=== PATIENT | female | born 1960 | race Caucasian/White ===

== ENCOUNTER → 2017-01-21 | Outpatient (CLI) | payer OTHER ==
[~2017-01-21] MED LIST: GADOBUTROL 10 ML VIAL IVP ONE
== END ==
LOC: FIMAGING 13:05
PROVIDERS: ATTEND Psychiatry & Neurology Neurology
DX: G35 Multiple sclerosis (principal)
CPT/HCPCS: A9585

== ENCOUNTER → 2018-03-03 | Outpatient (CLI) | payer OTHER ==
[~2018-03-03] MED LIST changes: -GADOBUTROL 10 ML VIAL IVP ONE; +IOPAMIDOL (ISOVUE-300) 100 ML BTL ONE
== END ==
LOC: CIMAGING 11:51
PROVIDERS: ATTEND Physician Assistant
DX: K55.1 Chronic vascular disorders of intestine (principal); Z90.49 Acquired absence of other specified parts of digestive tract
CPT/HCPCS: 74177-PO; Q9967

== ENCOUNTER → 2018-03-27 | Day surgery (SDC) | payer OTHER ==
[~2018-03-27] MED LIST changes: +ALTEPLASE 2 MG VIAL IVP PRN; +CLOPIDOGREL BISULFATE 75 MG TAB PO ONE; +FLUMAZENIL 0.5 MG/5 ML MDV IVP PRN; +GLUCAGON HCL 1 MG VIAL IVP PRN; +HEPARIN 10,000 UNIT/10 ML MDV (1,000 UNIT/ML) IVP PRN; +HEPARIN 10,000 UNIT/10 ML MDV (1,000 UNIT/ML) ONE; +MEPERIDINE 25 MG/ML SYR IVP PRN; +MIDAZOLAM 2 MG/2 ML VIAL IVP PRN; +NALOXONE HCL 0.4 MG/ML INJ IVP PRN; +NS 1,000 ML IV SCH; +ONDANSETRON 4 MG/2 ML VIAL IVP PRN; +OXYCODONE/APAP 5/325 TAB PO PRN; +PROTAMINE SULFATE 50 MG/5 ML VIAL IVP PRN; +fentaNYL 100 MCG/2 ML INJ IVP PRN
--- NOTE | 2018-03-27 08:31 | PDGENHP ---
History and Physical - Chief Complaint Ischemic Colitis - History of Present Illness 58 y/o F with hematochezia workup was found to have biopsy proven ischemic colitis on GI workup. CT abdomen demonstrates a severe noncalcified atherosclerotic plaque at the origin of the SMA. Celiac is patent but CECE is diminutive and poorly visualized. History of known coronary atherosclerotic plaque warranting stent placement. History Information - Allergies/Home Medication List Allergies/Adverse Reactions: morphine Allergy (Intermediate, Verified 03/20/18 13:54) itchy and nauesous Home Medications: Amantadine 100 mg PO DAILY 03/20/18 [Last Taken Unknown] Aspirin 81mg (*) 81 mg PO DAILY 03/20/18 [Last Taken Unknown] Betaseron 0.3 mg INJ EVERY OTHER DAY 03/20/18 [Last Taken Unknown] Biotin 10,000 mcg PO DAILY 03/20/18 [Last Taken Unknown] Bisoprolol Fumarate 5 mg PO DAILY 03/20/18 [Last Taken Unknown] Estradiol 0.5 mg PO DAILY 03/20/18 [Last Taken Unknown] Losartan Potassium 50 mg PO DAILY 03/20/18 [Last Taken Unknown] Lyrica 150 mg PO DAILY 03/20/18 [Last Taken Unknown] Mirtazapine 15 mg PO DAILY 03/20/18 [Last Taken Unknown] Multivitamins 1 tab PO DAILY 03/20/18 [Last Taken Unknown] Rosuvastatin Calcium 10 mg PO DAILY 03/20/18 [Last Taken Unknown] Vitamin D3 50 mg PO DAILY 03/20/18 [Last Taken Unknown] I have personally reviewed and updated: medical history - Social History Smoking Status: Heavy smoker Review of Systems Review of Systems: ROS: 10pt was reviewed & negative except for what was stated in HPI & below Physical Exam Physical Exam: Temp Pulse Resp BP Pulse Ox 36.2 C 70 16 107/70 93 03/27/18 07:57 03/27/18 07:57 03/27/18 07:57 03/27/18 07:57 03/27/18 07:57 O2 (L/minute) 0 Constitutional: no apparent distress Neurologic: AAOx3 Assessment & Plan Assessment: 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
[2018-03-27 09:51] VITALS: BP 91/50
--- NOTE | 2018-03-27 09:55 | PDRADPN ---
Radiology Procedure Note Date of Procedure: 03/27/18 Radiologist: Dez Ayala Anesthesia: IV Sedation Pre-op Diagnosis: Ischemic Colitis Post-op Diagnosis: Ischemic Colitis Indication: Mesenteric ischemia/ SMA stenosis Procedure: SMA stent placement Finding(s): High grade stenosis SMA successfully stented with mosque of wide patency and complete resolution of stenosis. Inf/Abcess present in the surg proc area at time of surgery?: No
== END | disposition home or self-care (01) ==
LOC: FIMAGING 07:26
PROVIDERS: ATTEND Internal Medicine Gastroenterology
DX: K55.9 Vascular disorder of intestine, unspecified (principal); I77.1 Stricture of artery; F17.210 Nicotine dependence, cigarettes, uncomplicated; Z95.5 Presence of coronary angioplasty implant and graft
CPT/HCPCS: 36245; 37236; 75726; 99152; 99153; C1769; C1892; C1894; C1760; C1876; J1644; J2250; J2310; J3010; Q9967